=== PATIENT | male | born 1970 | race Caucasian/White ===

== ENCOUNTER 2019-01-26 21:06 | Emergency (ER) | payer MEDICAID ==
[~2019-01-26] VITALS: Ht 180.3 cm; Wt 138.3 kg
[2019-01-26 21:55] VITALS: BP 139/80
== END 2019-01-26 22:44 | disposition home or self-care (01) ==
LOC: ER 21:12
DX: G89.29 Other chronic pain (principal); M25.531 Pain in right wrist; I10 Essential (primary) hypertension; Z98.890 Other specified postprocedural states; Z88.6 Allergy status to analgesic agent
CPT/HCPCS: 29125; 99283; A4606